=== PATIENT | male | born 1975 | race Caucasian/White ===

== ENCOUNTER 2021-02-01 10:20 | Emergency (ER) | payer OTHER, SELFPAY ==
[2021-02-01 10:40] VITALS: BP 148/92; PULSE 91; RESP 18; TEMP 36.6; O2SAT 98
--- NOTE | 2021-02-01 10:53 | ED.URI ---
HPI - URI/Sore Throat General Chief Complaint: Upper Respiratory Infection Stated Complaint: Congestion,Runny Nose,Sore Throat Time Seen by Provider: 02/01/21 10:57 Source: patient Mode of arrival: ambulatory Limitations: no limitations History of Present Illness HPI Narrative: Jamaal Junior is a 46 yo male with no PMH comes to [facility] with sore throat and congestion x5 days. He had negative call with test at home last night and states his throat is sore today Related Data Allergies Allergy/AdvReac Type Severity Reaction Status Date / Time No Known Allergies Allergy Unknown Verified 02/01/21 10:43 Review of Systems Review of Systems: CONSTITUTIONAL: Denies fever, chills, sweats. EYES: Denies visual changes, redness, discharge. ENT: Denies rhinorrhea, congestion, has sore throat, otalgia. CARDIOVASCULAR: Denies chest pain, palpitations, edema. RESPIRATORY: Denies dyspnea, wheezing, cough GASTROINTESTINAL: Denies abdominal pain, nausea, vomiting, diarrhea. GENITOURINARY: Denies dysuria, hematuria, abnormal discharge SKIN: Denies rash or itching. NEUROLOGIC: Denies numbness, or focal weakness. PSYCHIATRIC: Denies anxiety or depression. [facility] Past Medical History Medical History No acute medical problems Social History Social History (Updated 02/01/21 @ 11:06 by Teena Simpson CNP) Smoking status: Never smoker Alcohol intake: current Comments At time of signature, I agree with nursing past medical, surgical, social and family history. There is no relevant family history pertinent to the presenting complaint. Patient has a primary care provider that he sees regularly and does not have a diagnosis of hypertension so soon to the blood pressure is elevated due to illness at this time Exam Narrative: GENERAL: This is a well-nourished, well-developed patient, in mild distress. Dry cough chest started HEAD: normocephalic, atraumatic. EYES: . Sclera clear/white. Vision is grossly intact. EARS: External ears normal, auditory canals erythema and without drainage, TMs normal without perforation. Hearing grossly intact. NOSE: External nose normal without nasal discharge, nares without redness, has rhinorrhea. THROAT: Mucous membranes moist, posterior pharynx erythema NECK: Neck supple, non-tender CARDIOVASCULAR: Regular rate and rhythm without murmurs, gallops, or rubs. RESPIRATORY: Clear to auscultation. Breath sounds equal bilaterally. No wheezes, rales, or rhonchi. GASTROINTESTINAL: Abdomen soft, non-tender, SKIN: warm, intact with no suspicious lesions or rash, good texture and turgor. NEURO: awake, alert, and oriented to person, place and time. There were no obvious focal neurologic abnormalities. Steady gait EXTREMITIES: Normal range of motion. BACK: Nontender without deformity Course Course Emergency Course: Patient here with congestion sore throat for the last 3 to 4 days had a negative Covid test at home. In the last few hours developed a dry cough Strep test is negative Started on Mucinex, steroids, Tessalon Perles Vital Signs Vital signs: Vital Signs Temperature 97.9 F 02/01/21 10:40 Pulse Rate 91 02/01/21 10:40 Respiratory Rate 18 02/01/21 10:40 Blood Pressure 148/92 H 02/01/21 10:40 Pulse Oximetry 98 02/01/21 10:40 Temperature 97.9 F 02/01/21 10:40 Pulse Rate 91 02/01/21 10:40 Respiratory Rate 18 02/01/21 10:40 Blood Pressure 148/92 H 02/01/21 10:40 Pulse Oximetry 98 02/01/21 10:40 MDM - URI/Sore Throat Differential Diagnosis Differential diagnosis: Likely upper respiratory infection, sinusitis, bronchitis, influenza and pharyngitis Lab Data Labs: Strep Screen Presumptive Negative *(Reference Range: Negative)* Critical Care Time Critical Care Time Critical Care Time: No Discharge Plan Discharge Clinical Impression: Upper respiratory in
== END 2021-02-01 11:18 | disposition home or self-care (01) ==
PROVIDERS: Emergency Provider Nurse Practitioner; PCP Physician Assistant
DX: J06.9 Acute upper respiratory infection, unspecified (principal)
CPT/HCPCS: 87081; 87880; 99213; G0463

== ENCOUNTER 2022-08-06 09:45 | Emergency (ER) | payer OTHER, SELFPAY ==
--- NOTE | 2022-08-06 09:51 | ED.URI ---
HPI - URI/Sore Throat General Chief Complaint: Upper Respiratory Infection Stated Complaint: sorethroat,congestion Time Seen by Provider: 08/06/22 09:52 Source: patient Mode of arrival: ambulatory Limitations: no limitations History of Present Illness HPI Narrative: Patient is a 47-year-old male who presents with congestion, sore throat and intermittent cough since . Patient does take a daily Zyrtec but has not taken any other medication. Denies any fever, sinus pressure, headache, ear pain, nausea, vomiting, diarrhea. Denies any sick contacts. Still able to eat and drink normally. Patient leaving for [facility] in the morning Related Data Home Medications Medication Instructions Recorded Confirmed cetirizine 10 mg tablet (Zyrtec) 10 mg PO DAILY 08/06/22 08/06/22 Allergies Allergy/AdvReac Type Severity Reaction Status Date / Time No Known Allergies Allergy Unknown Verified 08/06/22 10:17 Review of Systems Review of Systems: All systems reviewed & are unremarkable except as noted in HPI and below Constitutional: Constitutional: Denies body ache(s), Denies chills, Denies fatigue, Denies fever(s), Denies headache(s), Denies malaise and Denies weakness Eyes: Eyes: Denies blurry vision, Denies itchy eyes and Denies loss of vision ENT: Denies otalgia, Denies headache(s), Reports nasal congestion, Denies sinus pain and Reports sore throat Cardiovascular: Cardiovascular: Denies chest pain, Denies irregular heart rhythm and Denies dyspnea Respiratory: Respiratory: Reports cough and Denies dyspnea Gastrointestinal: Gastrointestinal: Denies abdominal pain, Denies diarrhea, Denies nausea and Denies vomiting Musculoskeletal: Musculoskeletal: Denies back pain, Denies myalgias and Denies arthralgias Integumentary/Breasts: Skin/Breast: Denies pruritus and Denies rash Neurologic: Denies headache(s), Denies loss of vision and Denies weakness Psychiatric: Psychiatric: Reports no additional psychiatric complaints Endocrine: Endocrine: Denies fatigue Allergic/Immunologic: Allergic/Immunologic: Denies itchy eyes PMFSH Past Medical History Medical History No acute medical problems Social History Social History (Updated 02/01/21 @ 11:06 by Teena Simpson, COMMUNITY HEALTH SPECIALIST) Smoking status: Never smoker Alcohol intake: current Comments At time of signature, agree with nursing past medical, surgical, social and family history. There is no relevant family history pertinent to the presenting complaint. Exam Const: General: cooperative, healthy appearing, comfortable, no acute distress and well nourished Nutritional Appearance: well nourished Orientation/consciousness: patient oriented x3 Limitations: no limitations HENMT: Head: normal to inspection, normocephalic and atraumatic Ears: hearing grossly normal bilaterally, external ears normal, TM's normal bilaterally, EAC's normal and no periauricular adenopathy Face/Nose/Sinus: Normal external nose present, Normal nasal mucous membranes and turbinates present, normal facial exam, sinuses nontender and face symmetric Face and sinus: normal facial exam, sinuses nontender and face symmetric Mouth: Yes Normal oral and palatal mucosa present, Yes lip normal, Yes tongue normal, Yes Normal salivary glands and ducts present, Yes oropharynx normal and Yes moist mucous membranes Teeth and gingiva: dentition normal Throat: uvula midline, abnormal tonsil bilateral erythema, posterior oropharynx abnormal erythema and postnasal drainage Eyes: General: appearance normal, both eyes and all related structures Alignment and Position: alignment normal and position normal Periorbital: periorbital findings normal Eyelids: eyelids normal Pupils: Equal, round and reactive pupils present Neck: Neck: normal visual inspection, full ROM, no lymphadenopathy and supple Chest: Chest palpation & inspection: normal inspection of the chest and nor
[2022-08-06 10:09] VITALS: BP 129/81; PULSE 97; RESP 16; TEMP 36.5; O2SAT 98
== END 2022-08-06 10:34 | disposition home or self-care (01) ==
PROVIDERS: Emergency Provider Nurse Practitioner Family; PCP Physician Assistant
DX: J02.9 Acute pharyngitis, unspecified (principal)
CPT/HCPCS: 87081; 87880; 99213; G0463

== ENCOUNTER 2024-12-28 01:35 | Day surgery (SDC) | payer OTHER, SELFPAY ==
--- OUTSIDE RECORDS SUMMARY | 2011-03-14 08:50 | XMS_ITS | Continuity of Care Document ---
Author Organization [facility] Address [address] [place] [address] Phone Care Team Providers Care Criminology Professor Name Role Phone Unavailable Unavailable Unavailable Procedures Procedure Date Office/outpatient visit,[facility], [facility] [place] Drain/inject major jointor bursa 2011 Depo Medrol Methylprednisolone 40 MG inj MRI upr extr joint, w/o contrast 2011 Office/outpatient visit,[facility] 2011 Advance Directives Directive Yes / No Effective Date File Name No Information Encounters Encounter Description Practice Location Reason(s) For Visit Diagnoses Date Provider Providers Copied on Encounter Office/outpat ient visit,est, [facility], [address] [place] [address], [id number], [place] tel:[phone] [facility] [employer] [facility] JOINT PAIN-SHLDERR OTATOR CUFF SYND NOS 2 No Information Referring Provider: Rico Gonzalez, [address] [place] [address] [address], [place], [address] . tel:[phone] [facility], [address] [place] [address], [id number], [place] tel:[phone] [facility] ROTATOR CUFF SYND NOSPartial Tear Of Rotator CuffLOC PRIM OSTEOART-SHL KIRAN 2 [facility]. [address] [place] [address], [address], [place], [place], [id number], [place]. tel:[phone] Referring Provider: Rico Gonzalez, [address], [place], [address] . tel:[phone] Office/outpat ient visit,new, [facility], [address], [place], [place], [id number], tel:[phone] [facility] JOINT PAIN-SHLDERS PRAIN ROTATOR CUFFROTATOR CUFF SYND NOS 2 No Information Referring Provider: Christy Hansen, [address], [place], [address]. tel:[phone] Family History Family Member Type Diagnosis Age At Onset No Information Payers Payer name Insurance type Covered constitution party ID Ny rodriguez(s) Ayde Blue Cross Blue Shiel d [facility] [id number] Social History Type Description Quantity Date Captured Comments Sex Male Smoking Status No Information Chief Complaint And Reason For Visit No Information Reason For Referral Reason For Referral No Information History Of Present Illness Encounter Date Complaint History Of Prese nt Illness No Information Functional Status Date Functional Assessmen t No Information Instructions Date Instruction Additional Infor mation No Information Assessments Type Assessment Date No Information Patient Care Teams Name Effective Dates (start - stop) Status Members No Information
--- OUTSIDE RECORDS SUMMARY | 2011-03-14 08:50 | XMS_ITS | Continuity of Care Document ---
Author Organization [facility] Address [address] [place] [address] Phone Care Team Providers Care Packaging Machine Supplies Distributor Name Role Phone Unavailable Unavailable Unavailable Procedures Procedure Date Office/outpatient visit,[facility], [facility] [place] Drain/inject major jointor bursa 2011 Depo Medrol Methylprednisolone 40 MG inj MRI upr extr joint, w/o contrast 2011 Office/outpatient visit,[facility] 2011 Advance Directives Directive Yes / No Effective Date File Name No Information Encounters Encounter Description Practice Location Reason(s) For Visit Diagnoses Date Provider Providers Copied on Encounter Office/outpat ient visit,est, [facility], [address] [place] [address], [id number], [place] tel:[phone] Orth[facility] [employer] [facility] JOINT PAIN-SHLDERR OTATOR CUFF SYND NOS 2 No Information Referring Provider: Rico Gonzalez, [address] [place] [address] [address], [place], [address] . tel:[phone] [facility], [address] [place] [address], [id number], [place] tel:[phone] [facility] ROTATOR CUFF SYND NOSPartial Tear Of Rotator CuffLOC PRIM OSTEOART-SHL KIRAN 2 [facility]. [address] [place] [address], [address], [place], [place], [id number], [place]. tel:[phone] Referring Provider: Rico Gonzalez, [address], [place], [address] . tel:[phone] Office/outpat ient visit,[place], [facility], [address], [place], [place], [id number], tel:[phone] [facility] JOINT PAIN-SHLDERS PRAIN ROTATOR CUFFROTATOR CUFF SYND NOS 2 No Information Referring Provider: Christy Hansen, [address], [place], [address]. tel:[phone] Family History Family Member Type Diagnosis Age At Onset No Information Payers Payer name Insurance type Covered green party ID Ny rodriguez(s) Ayde Blue Cross Blue Shiel d [facility] [id number] Social History Type Description Quantity Date Captured [...]
--- OUTSIDE RECORDS SUMMARY | 2011-03-14 08:50 | XMS_ITS | Continuity of Care Document ---
Author Organization [facility] Address [address] [place] [address] Phone Care Team Providers Care Poly Area Supervisor Name Role Phone Unavailable Unavailable Unavailable Procedures Procedure Date Office/outpatient visit,[facility] 2011 Drain/inject major jointor bursa 2011 Depo Medrol Methylprednisolone 40 MG inj MRI upr extr joint, w/o contrast 2011 Office/outpatient visit,[facility] 2011 Advance Directives Directive Yes / No Effective Date File Name No Information Encounters Encounter Description Practice Location Reason(s) For Visit Diagnoses Date Provider Providers Copied on Encounter Office/outpat ient visit,est, [facility], [address] [place] [address], [id number], [place] tel:[phone] [facility] [employer] [facility] JOINT PAIN-SHLDERR OTATOR CUFF SYND NOS 2 No Information Referring Provider: Rico Gonzalez, [address] [place] [address] [address], [place], [address] . tel:[phone] [facility], [address] [place] [address], [id number], [place] tel:[phone] [facility] ROTATOR CUFF SYND NOSPartial Tear Of Rotator CuffLOC PRIM OSTEOART-SHL KIRAN 2 [facility]. [address] [place] [address], [address], [place], [place], [id number], [place]. tel:[phone] Referring Provider: Rico Gonzalez, [address], [place], [address] . tel:[phone] Office/outpat ient visit,new, [facility], [address], [place], [place], [id number], tel:[phone] [facility] JOINT PAIN-SHLDERS PRAIN ROTATOR CUFFROTATOR CUFF SYND NOS 2 No Information Referring Provider: Christy Hansen, [address], [place], [address]. tel:[phone] Family History Family Member Type Diagnosis Age At Onset No Information Payers Payer name Insurance type Covered republican ID Ny rodriguez(s) Ayde Blue Cross Blue Shiel d [facility] [id number] Social History Type Description Quantity Date Captured [...]
--- OUTSIDE RECORDS SUMMARY | 2011-03-14 08:50 | XMS_ITS | Continuity of Care Document ---
Author Organization [facility] Address [address] [place] [address] Phone Care Team Providers Care Department Coordinator Name Role Phone Unavailable Unavailable Unavailable Procedures Procedure Date Office/outpatient visit,[facility], [facility] 2011 Drain/inject major jointor bursa 2011 Depo Medrol Methylprednisolone 40 MG inj MRI upr extr joint, w/o contrast 2011 Office/outpatient visit,[facility] 2011 Advance Directives Directive Yes / No Effective Date File Name No Information Encounters Encounter Description Practice Location Reason(s) For Visit Diagnoses Date Provider Providers Copied on Encounter Office/outpat ient visit,est, [facility], [address] [place] [address], [id number], [place] tel:[phone] Orthopedic [employer] [facility] JOINT PAIN-SHLDERR OTATOR CUFF SYND NOS 2 No Information Referring Provider: Rico Gonzalez, [address] [place] [address] [address], [place], [address] . tel:[phone] [facility], [address] [place] [address], [id number], [place] tel:[phone] [facility] ROTATOR CUFF SYND NOSPartial Tear Of Rotator CuffLOC PRIM OSTEOART-SHL KIRAN 2 [facility]. [address] [place] [address], [address], [place], [place], [id number], [place]. tel:[phone] Referring Provider: Rico Gonzalez, [address], [place], [address] . tel:[phone] Office/outpat ient visit,new, [facility], [address], [place], [place], [id number], tel:[phone] [facility] JOINT PAIN-SHLDERS PRAIN ROTATOR CUFFROTATOR CUFF SYND NOS 2 No Information Referring Provider: Christy Hansen, [address], [place], [address]. tel:[phone] Family History Family Member Type Diagnosis Age At Onset No Information Payers Payer name Insurance type Covered alliance party ID Ny rodriguez(s) Ayde Blue Cross Blue Shiel d [facility] [id number] Social History Type Description Quantity Date Captured [...]
--- OUTSIDE RECORDS SUMMARY | 2011-03-14 08:50 | XMS_ITS | Continuity of Care Document ---
Author Organization [facility] Address [address] [place] [address] Phone Care Team Providers Care Director Institution Name Role Phone Unavailable Unavailable Unavailable Procedures Procedure Date Office[facility]outpatient visit,[facility] 2011 Drain/inject major jointor bursa 2011 Depo Medrol Methylprednisolone 40 MG inj MRI upr extr joint, w/o contrast 2011 Office/outpatient visit,[facility] 2011 Advance Directives Directive Yes / No Effective Date File Name No Information Encounters Encounter Description Practice Location Reason(s) For Visit Diagnoses Date Provider Providers Copied on Encounter Office/outpat ient visit,est, [facility], [address] [place] [address], [id number], [place] tel:[phone] Orthopedic [employer] [facility] JOINT PAIN-SHLDERR OTATOR CUFF SYND NOS 2 No Information Referring Provider: Rico Gonzalez, [address] [place] [address] [address], [place], [address] . tel:[phone] [facility], [address] [place] [address], [id number], [place] tel:[phone] [facility] ROTATOR CUFF SYND NOSPartial Tear Of Rotator CuffLOC PRIM OSTEOART-SHL KIRAN 2 [facility]. [address] [place] [address], [address], [place], [place], [id number], [place]. tel:[phone] Referring Provider: Rico Gonzalez, [address], [place], [address] . tel:[phone] Office/outpat ient visit,new, [facility], [address], [place], [place], [id number], tel:[phone] [facility] JOINT PAIN-SHLDERS PRAIN ROTATOR CUFFROTATOR CUFF SYND NOS 2 No Information Referring Provider: Christy Hansen, [address], [place], [address]. tel:[phone] Family History Family Member Type Diagnosis Age At Onset No Information Payers Payer name Insurance type Covered democrat ID Ny rodriguez(s) Ayde Blue Cross Blue Shiel d [facility] [id number] Social History Type Description Quantity Date Captured [...]
--- OUTSIDE RECORDS SUMMARY | 2011-03-14 08:50 | XMS_ITS | Continuity of Care Document ---
Author Organization [facility] Address [address] [place] [address] Phone Care Team Providers Care Steward/Stewardess Name Role Phone Unavailable Unavailable Unavailable Procedures Procedure Date Office/outpatient visit,[facility], [facility] [place] Drain/inject major jointor bursa 2011 Depo Medrol Methylprednisolone 40 MG inj MRI upr extr joint, w/o contrast 2011 Office/outpatient visit,[facility] 2011 Advance Directives Directive Yes / No Effective Date File Name No Information Encounters Encounter Description Practice Location Reason(s) For Visit Diagnoses Date Provider Providers Copied on Encounter Office/[place]pat [place] visit,est, [facility], [address] [place] [address], [id number], [place] tel:[phone] [employer] [facility] JOINT PAIN-SHLDERR OTATOR CUFF SYND NOS 2 No Information Referring Provider: Rico Gonzalez, [address] [place] [address] [address], [place], [address] . tel:[phone] [facility], [address] [place] [address], [id number], [place] tel:[phone] [facility] ROTATOR CUFF SYND NOSPartial Tear Of Rotator CuffLOC PRIM OSTEOART-SHL KIRAN 2 [facility]. [address] [place] [address], [address], [place], [place], [address], [place]. tel:[phone] Referring Provider: Rico Gonzalez, [address], [place], [address] . tel:[phone] Office/outpat ient visit,[place], [facility], [address], [place], [place], [id number], tel:[phone] [facility] JOINT PAIN-SHLDERS PRAIN ROTATOR CUFFROTATOR CUFF SYND NOS 2 No Information Referring Provider: Christy Hansen, [address], [place], [address]. tel:[phone] Family History Family Member Type Diagnosis Age At Onset No Information Payers Payer name Insurance type Covered democrat ID Ny rodriguez(s) Ayde Blue Cross Blue Shiel d [facility] [id number] Social History Type Description Quantity Date Captured [...]
--- OUTSIDE RECORDS SUMMARY | 2011-03-14 08:50 | XMS_ITS | Continuity of Care Document ---
Author Organization [facility] Address [address] [place] [address] Phone Care Team Providers Care Asbestos Pipe Supervisor Name Role Phone Unavailable Unavailable Unavailable Procedures Procedure Date Office/outpatient visit,[facility], [facility] 2011 Drain/inject major jointor bursa 2011 Depo Medrol Methylprednisolone 40 MG inj MRI upr extr joint, w/o contrast 2011 Office/outpatient visit,[facility] 2011 Advance Directives Directive Yes / No Effective Date File Name No Information Encounters Encounter Description Practice Location Reason(s) For Visit Diagnoses Date Provider Providers Copied on Encounter Office/outpat ient visit,est, [facility], [address] [place] [address], [id number], [place] tel:[phone] Orthopedic [employer] [facility] JOINT PAIN-SHLDERR OTATOR CUFF SYND NOS 2 No Information Referring Provider: Rico Gonzalez, [address] [place] [address] [address], [place], [address] . tel:[phone] [facility], [address] [place] [address], [id number], [place] tel:[phone] [facility] ROTATOR CUFF SYND NOSPartial Tear Of Rotator CuffLOC PRIM OSTEOART-SHL KIRAN 2 [facility]. [address] [place] [address], [address], [place], [place], [id number], [place]. tel:[phone] Referring Provider: Rico Gonzalez, [address], [place], [address] . tel:[phone] Office/outpat ient visit,new, [facility], [address], [place], [place], [id number], tel:[phone] [facility] JOINT PAIN-SHLDERS PRAIN ROTATOR CUFFROTATOR CUFF SYND NOS 2 No Information Referring Provider: Christy Hansen, [address], [place], [address]. tel:[phone] Family History Family Member Type Diagnosis Age At Onset No Information Payers Payer name Insurance type Covered republican ID Ny rodriguez(s) Ayde Blue Cross Blue Shiel d [facility] [id number] Social History Type Description Quantity Date Captured [...]
--- OUTSIDE RECORDS SUMMARY | 2011-03-14 08:50 | XMS_ITS | Continuity of Care Document ---
Author Organization [facility] Address [address] [place] [address] Phone Care Team Providers Care Nurse Charge Rn Name Role Phone Unavailable Unavailable Unavailable Procedures Procedure Date Office/outpatient visit,[facility], [facility] 2011 Drain/inject major jointor bursa 2011 Depo Medrol Methylprednisolone 40 MG inj MRI upr extr joint, w/o contrast 2011 Office/outpatient visit,[facility] 2011 Advance Directives Directive Yes / No Effective Date File Name No Information Encounters Encounter Description Practice Location Reason(s) For Visit Diagnoses Date Provider Providers Copied on Encounter Office/outpat ient visit,est, [facility], [address] [place] [address], [id number], [place] tel:[phone] Orthopedic [employer] [facility] JOINT PAIN-SHLDERR OTATOR CUFF SYND NOS 2 No Information Referring Provider: Rico Gonzalez, [address] [place] [address] [address], [place], [address] . tel:[phone] [facility], [address] [place] [address], [id number], [place] tel:[phone] [facility] ROTATOR CUFF SYND NOSPartial Tear Of Rotator CuffLOC PRIM OSTEOART-SHL KIRAN 2 [facility]. [address] [place] [address], [address], [place], [place], [id number], [place]. tel:[phone] Referring Provider: Rico Gonzalez, [address], [place], [address] . tel:[phone] Office/outpat ient visit,new, [facility], [address], [place], [place], [id number], tel:[phone] [facility] JOINT PAIN-SHLDERS PRAIN ROTATOR CUFFROTATOR CUFF SYND NOS 2 No Information Referring Provider: Christy Hansen, [address], [place], [address]. tel:[phone] Family History Family Member Type Diagnosis Age At Onset No Information Payers Payer name Insurance type Covered democrat ID Ny rodriguez(s) Ayde Blue Cross Blue Shiel d [facility] [id number] Social History Type Description Quantity Date Captured [...]
--- OUTSIDE RECORDS SUMMARY | 2011-03-14 08:50 | XMS_ITS | Continuity of Care Document ---
Author Organization [facility] Address [address] [place] [address] Phone Care Team Providers Care Service Dog Trainer Name Role Phone Unavailable Unavailable Unavailable Procedures Procedure Date Office/outpatient visit,[facility] 2011 Drain/inject major jointor bursa 2011 Depo Medrol Methylprednisolone 40 MG inj MRI upr extr joint, w/o contrast 2011 Office/outpatient visit,[facility] 2011 Advance Directives Directive Yes / No Effective Date File Name No Information Encounters Encounter Description Practice Location Reason(s) For Visit Diagnoses Date Provider Providers Copied on Encounter Office/outpat ient visit,est, [facility], [address] [place] [address], [id number], [place] tel:[phone] [facility] JOINT PAIN-SHLDERR OTATOR CUFF SYND NOS 2 No Information Referring Provider: Rico Gonzalez, [address] [place] [address] [address], [place], [address] . tel:[phone] [facility], [address] [place] [address], [id number], [place] tel:[phone] [facility] ROTATOR CUFF SYND NOSPartial Tear Of Rotator CuffLOC PRIM OSTEOART-SHL KIRAN 2 [facility]. [address] [place] [address], [address], [place], [place], [id number], [place]. tel:[phone] Referring Provider: Rico Gonzalez, [address], [place], [address] . tel:[phone] Office/outpat ient visit,new, [facility], [address], [place], [place], [id number], tel:[phone] [facility] JOINT PAIN-SHLDERS PRAIN ROTATOR CUFFROTATOR CUFF SYND NOS 2 No Information Referring Provider: Christy Hansen, [address], [place], [address]. tel:[phone] Family History Family Member Type Diagnosis Age At Onset No Information Payers Payer name Insurance type Covered republican ID Ny rodriguez(s) Ayde Blue Cross Blue Shiel d [facility] [id number] Social History Type Description Quantity Date Captured [...]
[2024-12-14 13:25] VITALS: BMI 37.3
--- OUTSIDE RECORDS SUMMARY | 2024-12-28 01:39 | XMS_ITS | Clinical Summary ---
Author Organization [facility] Address [address] [place] [address] Care Team Providers Care [employer] Custodian Name Role Phone Luna Myles Primary Care Pr ovider Allergies No known active allergies Medications FLAXSEED OIL ORAL Take 1 tablet by mouth every morning Active ibuprofen (ADVIL,MOTRIN) 600 mg tablet Take 600 mg by mouth every 6 (six) hours as needed for pain Active Active Problems Problem Noted Date Diagnosed Date Dog bite of hand 10/06/2019 Complete tear of right rotator cuff 08/13/2019 Overview (08/13/2019): Added automatically from request for surgery [id number] Subjective tinnitus 06/04/2013 Overview (05/17/2016): Subjective tinnitus Neural hearing loss, unilateral 06/04/2013 Overview (05/18/2016): Neural hearing loss, unilateral Unilateral hearing loss 05/11/2013 Overview (05/17/2016): Hearing loss in left ear 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 Immunizations Immunization Administration Dates Next Due Influenza, Trivalent, Preservative Free, Intramu scular 12/04/2010 Tetanus toxoid, adsorbed 05/03/2006 Surgical History Surgery Date Site/Laterality Comments BACK SURGERY Back surgery THUMB SURGERY Medical History Medical History Date Comments Hx Other Medical partial L thumb amputation Heart murmur Family History Medical History Relation Name Comments Alcohol abuse Father Other Father Alive and well; Other Mother Alive and well; Lupus Sister Anesthesia problems Neg Hx Relation Name Status Comments Father Alive Mother Alive Sister Social History Tobacco Use Types Packs/Day Years Used Date Smoking Tobacco: Never Smokeless Tobacco: Never Alcohol Use Standard Drinks/Week Comments Yes 0 (1 standard drink = 0.6 oz pur e alcohol) SOCIAL Sex and Gender Information Value Date Recorded Sex Assigned at Not on file 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 Gender Identity Not on file Sexual Orientation Not on file Last Filed Vital Signs Vital Sign Reading Time Taken Comments Blood Pressure 111/60 09/04/2019 11:10 AM CDT Pulse 65 09/04/2019 11:15 AM CDT Temperature 36.7 C (98.1 F) 09/04/2019 9:16 AM CDT Respiratory Rate 18 09/04/2019 11:1 5 AM CDT Oxygen Saturation 95% 09/04/2019 11: 15 AM CDT Inhaled Oxygen Concentration - - Weight 109.9 kg (242 lb 4.8 oz) 09/04/2019 5:44 AM CDT Height 182.9 cm (6') 09/04/2019 5:44 AM CDT Body Mass Index 32.86 09/04/2019 5:44 AM CDT Plan of Treatment Not on file Medical Devices Implanted Type Area Instrumentation Chemist Device Identifier Shelf Expiration Date Model / Serial / Lot [employer] Ar-2324bcc Swivelock C 4.75mm 19.1mm Closed Eyelet Vent [place] Suture - S0 - [id number] Implanted:Qty: 1 on 09/04/2019 by Jed Adan MD at [facility] [place] [employer] 06/11/2023 AR-[id number] / 0 / [id number] [employer] Ar-2324bcc Swivelock C 4.75mm 19.1mm Closed Eyelet Vent [place] Suture - S0 - [id number] Implanted:Qty: 1 on 09/04/2019 by Jed Adan MD at [facility] [place] [employer] 06/11/2023 AR-[id number] / 0 / [id number] [employer] Ar-2324bcc Swivelock C 4.75mm 19.1mm Closed Eyelet Vent [place] Suture - [id number] Implanted:Qty: 1 on 09/04/2019 by Jed Adan MD at [facility] [place] Right: Shoulder [employer] 06/11/2023 AR-2324BCC / / [id number] [employer] Ar-2324bcc Swivelock C 4.75mm 19.1mm Closed Eyelet Vent [place] Suture - [id number] Implanted:Qty: 1 on 09/04/2019 by Jed Adan MD at [facility] [place] Right: Shoulder [employer] 06/11/2023 AR-[id number] / / [id number] Insurance Care Teams Industrial Plant Custodian Relationship Specialty Start Date End Date Luna Myles PA PCP - General Physician Circuit Tester 08/11/19
--- OUTSIDE RECORDS SUMMARY | 2024-12-28 01:39 | XMS_ITS ---
Author Organization Unknown ENCOUNTERS Encounter Performer Location Date Diagnosis Diagnosis Status Outpatient [address] [place] [id number] *Note: Encounters from your own facility or health system may be excluded. Allergies, Adverse Reactions, Alerts Allergen Type Severity Identification Date Medications Name Date Quantity Days Supplied GPI Number
[2024-12-28 06:15] VITALS: BP 137/91; PULSE 81; RESP 18; TEMP 36.5; O2SAT 97; BMI 37.2
[2024-12-28] MEDS: LACTATED RINGERS 1,000 ML 150 ML IV CONT (06:28)
--- NOTE | 2024-12-28 06:53 | P.PNAN_ITS ---
Anes - Initial Pre Proc Eval Procedure: Operation Date: 12/28/24 07:30 Proposed Procedures p Screening Colonoscopy - Alonso Zamora MD Date/Time: 12/28/24 06:53 Surgeon: Alonso Zamora MD Pre Op Diagnosis: Encounter for screening for malignant neoplasm of Patient Data Age: 49 Gender: M Height: 1.83 m Weight: 124.5 kg Last Vital Signs Temp 36.5 C 12/28/24 06:15 Pulse 81 12/28/24 06:15 Resp 18 12/28/24 06:15 BP 137/91 H 12/28/24 06:15 Pulse Ox 97 12/28/24 06:15 O2 Del Method Room Air 12/28/24 06:15 Allergies Allergy/AdvReac Type Severity Reaction Status Date / Time No Known Allergies Allergy Unknown Verified 12/28/24 06:13 Home Medications ?Medication ?Instructions ?Recorded ?Confirmed ?Type cetirizine 10 mg tablet (Zyrtec) 10 mg PO DAILY PRN al lergy symptoms 08/06/22 12/28/24 History Patient hx anesthesia problems: none Family hx anesthesia problems: none Results Review: All pre-operative results and documents have been reviewed as part of the pre- operative evaluation. [facility] Past Medical History Medical History No acute medical problems Social History Social History (Updated 02/01/21 @ 11:06 by Teena Simpson, WON) Smoking status: Never smoker Alcohol intake: current Alcohol use details: Occasional Substance use: never Substance use type: does not use Living arrangements: with family Spiritual care concerns: No Anes - Eval Final PreProcedure Day of Procedure 12/28/24 06:53 Patient weight: obese Heart: regular rate and rhythm Lungs: clear to auscultation Airway: Mallampati scale class II Neurological: alert and oriented Last oral intake: >/= 8 hours ASA classification: II Emergent: no Anesthetic plan: proceed Anesthesia type and monitoring: general GIVS and standard monitoring Results Review: All pre-operative results and documents have been reviewed as part of the pre- operative evaluation. Informed Consent: The patient's anesthetic plan and its attendant risks and benefits were discussed with the patient/family/POA. Questions were solicited and answers provided to the satisfaction of the patient/family/POA.
--- NOTE | 2024-12-28 07:25 | P.HP_ITS ---
History of Present Illness History of Present Illness Consent: Risks, benefits, and alternatives have been discussed and questions answered. Patient agrees to proceed with procedure. Chief complaint: Encounter for screening for malignant neoplasm of Narrative: Jamaal Junior is a 49 year old male here for first screening colonoscopy Review of Systems Review of Systems: All systems reviewed & are unremarkable except as noted in HPI and below PMFSH Past Medical History Medical History (Updated 12/28/24 @ 07:26 by Alonso Zamora MD) Colon cancer screening No acute medical problems Social History Social History (Updated 02/01/21 @ 11:06 by Teena Simpson, CLINICAL TRIALS MANAGER) Smoking status: Never smoker Alcohol intake: current Alcohol use details: Occasional Substance use: never Substance use type: does not use Living arrangements: with family Spiritual care concerns: No Meds Home Medications and Allergies Home Medications ?Medication ?Instructions ?Recorded ?Confirmed ?Type cetirizine 10 mg tablet (Zyrtec) 10 mg PO DAILY PRN al lergy symptoms 08/06/22 12/28/24 History Allergies Allergy/AdvReac Type Severity Reaction Status Date / Time No Known Allergies Allergy Unknown Verified 12/28/24 06:13 Vital Signs Vital Signs - 24 hr 12/28/24 06:15 Temperature 97.7 F Pulse Rate 81 Respiratory Rate 18 Blood Pressure 137/91 H Pulse Oximetry 97 Oxygen Delivery Room Air Exam Const: General: comfortable and no acute distress HENMT: Face/Nose/Sinus: Normal nares present Eyes: General: appearance normal, both eyes and all related structures Neck: Neck: no JVD Resp: Auscultation: clear to auscultation bilaterally Cardio: Rate: regular rate Rhythm: regular rhythm GI: Inspection: non-distended GI Palp: Yes Soft to palpation Skin: General skin exam: normal color Extrem: General: normal to inspection Psych: Mental Status: mental status grossly normal Assessment and Plan Assessment and plan (1) Colon cancer screening: Code(s): Z12.11 - Encounter for screening for malignant neoplasm of colon Status: Acute Assessment and Plan: colonoscopy
[2024-12-28 07:45] VITALS: BP 101/60; PULSE 74; RESP 18; O2SAT 97
--- NOTE | 2024-12-28 07:46 | S_PTH ---
PATIENT: Jamaal Junior LOC: [facility] Johansen#:[id number] AGE/SX: 49/M ROOM: RE12/28/[address]: Alonso Zamora MD : 1975 BED: DIS: 12/28/2024 SPEC #: [id number] RECD: 12/28/24 09:07 STATUS: JUAN REEdyta #: [id number] RUBEN: 12/28/24 07:[address]: Alonso Zamora DEPT: [facility] [place] Surgical RECD BY: Melonie Mendez ENTERED: 12/28/24 09:08 SP TYPE: Surgical OTHR DR: Luna Myles, PA-C Tissues: A - Colon Polypectomy B - Colon Polypectomy Procedures: Hematoxylin and Eosin Stain Gross and Microscopic Level 4
[2024-12-28 07:55] VITALS: BP 115/65; PULSE 70; RESP 18; O2SAT 98
[2024-12-28 08:05] VITALS: BP 123/66; PULSE 69; RESP 18; O2SAT 97
== END 2024-12-28 08:22 | disposition home or self-care (01) ==
PROVIDERS: PCP Physician Assistant; Referring Provider Physician Assistant; Visit Provider Internal Medicine Gastroenterology
PROC: 0DJD8ZZ Inspection of Lower Intestinal Tract, Via Natural or Artificial Opening Endoscopic (ICD-10-PCS; CPT 45378; principal; 2024-12-28 07:30)
DX: Z12.11 Encounter for screening for malignant neoplasm of colon (principal); D12.5 Benign neoplasm of sigmoid colon; D12.8 Benign neoplasm of rectum
CPT/HCPCS: 45385; 88305; J2704; J7120